=== PATIENT | female | born 1990 | race Hispanic/Latino ===

== ENCOUNTER 2017-10-31 21:25 | Inpatient (IN) | payer OTHER ==
[2017-10-31 23:01] VITALS: BMI 21.2
[2017-10-31] MEDS ORDERED: Lactated Ringer's 1,000 ML IV SCH (23:15)
[2017-10-31] MEDS ORDERED: Oxytocin 30 units/LR 500ML 30 U/500 ML BAG IV SCH (23:15)
--- NOTE | 2017-10-31 23:23 | OBADHP ---
Datetime: 10/31/2017 23:05 Admit Comment, IP Provider: This is 27 y/o F, , IUP at 39+ comes to the [facility] for r/o Labor and p ain. Pain stareted in morning and 4/10 severity, comes and goes every 5 to 10 mins. Denies LOF/BV, Good FM ROS unremarkbale PNC: Dr. Quintero PNI: Denies any complications with preg PMH: Denies PSH: Denies Allg: Ibuprofen Meds: PNV SH: Denies FH: Denies VS: Reviewed PE: As above A/P: 27 y/o F, , IUP at 39+ comes to the [facility] for r/o Labor and pain. Latent phase - Admit to L_D - Labs - Monitor NST/FHT - Rubella/Hep B - Reevaluation Case discussed with Dr. Quintero --- Janae Byrnes, PGY-[address] Quintero: Patient evaluated and I agree with the above Pelvic Type - PN: Adequate Extremities - PN: Normal Abdomen - PN: Normal Lungs - PN: Normal Heart - PN: Normal Thyroid - PN: Normal Neurologic - PN: Normal HEENT - PN: Normal General - PN: Normal FHR - Baseline A Provider: 130 Comments, ACOG Physical Exam: U/S: Vertex Order Rubella and Hep B Vital Signs Provider: Reviewed; Within Normal Limits IP Chief Complaint: Uterine contractions; Maternal discomfort NICHD Variability Prov Fetus A: Moderate 6-25bpm NICHD Accel Fetus A IP Provider: [id number] FHR Category Provider Fetus A: Category I NICHD Decel Fetus A IP Provider: None Dilatation, Provider: 4-5 Effacement, Provider: 80 Station, Provider: -2 Genitourinary Exam: Normal IP Adm Impression: Term, intrauterine IP Admit Plan: Admit to unit; Initiate labor protocol; Observation/Evaluation
[2017-11-01 00:08] LABS: BASO % 0.2 % (0.0-2.0); EOS # 0.1 K/uL (0.0-0.7); EOS % 0.7 % (0.0-4.0); HEMOGLOBIN 14.9 g/dL (12.0-16.0); LYMPH # 2.1 K/uL (1.0-4.3); LYMPH % 14.4 % (20.0-40.0); MEAN CELL VOLUME 96.2 fl (81.0-99.0); MEAN CORPUSCULAR HEMOGLOBIN 33.9 pg (27.0-31.0); MEAN CORPUSCULAR HGB CONC 35.2 g/dL (33.0-37.0); NEUT # 11.5 K/uL (1.8-7.0); NEUT % 77.7 % (50.0-75.0); RBC 4.41 Mil/uL (3.80-5.20); RED CELL DISTRIBUTION WIDTH 12.8 % (11.5-14.5); WHITE BLOOD COUNT 14.8 K/uL (4.8-10.8)
[2017-11-01] MEDS: Lactated Ringer's 1,000 ML IV SCH ×2 (07:55→09:10)
[2017-11-01] MEDS ORDERED: Fentanyl/Bupivacaine HCl 250 ML EPI ONE (09:18)
--- NOTE | 2017-11-01 10:38 | OBPN ---
Datetime: 11/01/2017 10:25 IP Progress Impression: Normal progression of labor; Reassuring heart rate IP Informed Consent Obtain: Vaginal Delivery; Risks, Benefits and Alternatives Discussed IP Procedures: Artificial ROM IP Progress Plan: Augmentation; Anticipate Vaginal Delivery Membranes, Provider: Bulging Amniotic Fluid Color, Provider: Meconium, Light FHR - Baseline A Provider: 130 Presentation-Admit: Vertex IP Progress Note Comment: She had episode of decel after epidural; placed in left lateral position, O2...FHR reactive A: Active phase of labor slow progress dues to irrgeular CTX PLAN: Discussion with pt...AROM augmentatoin - thin mec/Pitocin augmentation...observe progress NICHD Accel Fetus A IP Provider: 15X15 FHR Category Provider Fetus A: Category I NICHD Variability Prov Fetus A: Moderate 6-25bpm Dilatation, Provider: 7 Effacement, Provider: 90 Station, Provider: 0 Datetime: 10/31/2017 23:05 Vital Signs Provider: Reviewed; Within Normal Limits NICHD Decel Fetus A IP Provider: None
[2017-11-01] MEDS ORDERED: Lidocaine 2% Inj (20ml) ONE (11:19)
[2017-11-01] MEDS ORDERED: Benzocaine/Menthol SPRAY TOP PRN ×2 (12:34→17:37)
[2017-11-01] MEDS ORDERED: Oxycodone/Acetaminophen 5/325 mg Tab PO PRN ×2 (12:34→17:37)
--- NOTE | 2017-11-01 14:47 | OBDS ---
DELIVERY PERSONNEL Delivery Doctor: Sarah Thompson DO [employer] Service Supervisor: Reid Mckeon RN/ Reid Cazares RN Anesthesiologist: Urbano Jules MD Resident: none MATERNAL INFORMATION Delivery Anesthesia: Epidural Medications in Delivery: Pitocin Estimated Blood Loss (ml): 200 Placenta Cultured: No Maternal Complications: None Provider Comments: Over intact perineum, of live female . She was crying spontaneously, b ulb suctoined and placed on mother for skin to skin. Cord was clamped and cut by father. Placenta w as delivered intact spontansously. EBL 200cc. AGPAR 9,9 LABOR SUMMARY EDC: 11/07/2017 00:00 No. Babies in Womb: 1 Attempted: No Labor Anesthesia: Epidural LABOR INFORMATION Onset of Labor: 11/01/2017 08:30 Complete Dilatation: 11/01/2017 11:25 Oxytocin: N/A Group B Beta Strep: Negative Antibiotics # of Doses: N/A Antibiotics Time of Last Dose: N/A Steroids Given: None Reason Steroids Not Administered: Not Applicable MEMBRANES Membranes Rupture Method: Artificial Rupture of Membranes: 11/01/2017 10:25 Length of Rupture (hrs): 1.72 Amniotic Fluid Color: Light Meconium Amniotic Fluid Amount: Moderate Amniotic Fluid Odor: Normal STAGES OF LABOR Stage 1 hrs: 2 Stage 1 min: 55 Stage 2 hrs: 0 Stage 2 min: 43 Stage 3 hrs: 0 Stage 3 min: 7 Total Time in Labor hrs: 3 Total Time in Labor min: 45 VAGINAL DELIVERY Episiotomy: None Laceration Extension: First Degree Laceration Type: Perineal Other Laceration: Bilateral inner labial laceration Laceration Repair: Yes Laceration Repair Note: 2% Lidocaine infiltrated (3cc) to both inner labia. 2.0 Vicryl sutures used to repair inner labial lacerations and perineal laceration Initial Vag Sponge Count: 5 laps Final Vag Sponge Count: 5 laps Initial Vag Sharps Count: 3 needles/1 syringe Final Vag Sharps Count: 3 needles, 1 syringe Sponge Count Correct: Yes Sharps Count Correct: Yes Count Comment: one syringe, 3 needles, 5 laps BABY A INFORMATION Delivery Date/Time: 11/01/2017 12:08 Method of Delivery: Vaginal Born in Route : No : N/A Forceps: N/A Vacuum Extraction: N/A Shoulder Dystocia : No SHOULDER DYSTOCIA BABY A Delivery Date/Time: 11/01/2017 12:08 PRESENTATION/POSITION BABY A Presentation: Cephalic Cephalic Presentation: Vertex Breech Presentation: N/A PLACENTA INFORMATION BABY A Placenta Delivery Time : 11/01/2017 12:15 Placenta Method of Delivery: Spontaneous Placenta Status: Delivered SCORES BABY A Heart Rate 1 min: >100 bpm Resp Effort 1 min: Good Cry Reflex Irritability 1 min: Cough or Sneeze or Pulls Away Muscle Tone 1 min: Active Motion Color 1 min: Body [place], Extremities Blue Resuscitation Effort 1 min: Tactile Stimulation SCORE 1 MIN: 9 Heart Rate 5 min: >100 bpm Resp Effort 5 min: Good Cry Reflex Irritability 5 min: Cough or Sneeze or Pulls Away Muscle Tone 5 min: Active Motion Color 5 min: Body [place], Extremities Blue Resuscitation Effort 5 min: N/A SCORE 5 MIN: 9 INFORMATION BABY A Gestational Age at Delivery: 39.1 Gestational Status: Term Infant Outcome : Liveborn Condition : Stable Infant Sex: Female IDENTIFICATION/MEDS BABY A ID Band Number: [id number] ID Band Location: Left Leg; Left Arm Vitamin K Given : Not Given Erythromycin Given: Not Given WEIGHT/LENGTH BABY A Infant Birthweight (gms): 3260 Infant Weight (lb): 7 Infant Weight (oz): 3 CORD INFORMATION BABY A No. Cord Vessels: 3 Nuchal Cord : N/A Nuchal Cord Other: N/A True Knot: N/A Infant Cord pH Baby Arterial: N/A Cord pH Baby Venous: N/A Cord Blood Taken: Yes Banking/Donate Info: N/A Suction: Mouth; Nose ASSESSMENT BABY A Complications: None Physical Findings at Delivery: Within Normal Limits Respirations: Appears Normal Watch Crystal Grinder/ALS Called : No Infant Care By: Dr. Jain/Reid Mckeon RN/Reid Cazares RN Transferred To: Remains with Mother
[2017-11-02 06:35] LABS: HEMOGLOBIN 13.9 g/dL (12.0-16.0); MEAN CORPUSCULAR HEMOGLOBIN 33.2 pg (27.0-31.0); MEAN CORPUSCULAR HGB CONC 34.2 g/dL (33.0-37.0); RBC 4.18 Mil/uL (3.80-5.20); RED CELL DISTRIBUTION WIDTH 12.6 % (11.5-14.5)
[2017-11-02] MEDS ORDERED: Multivitamin With Minerals Tab PO SCH (09:00)
[2017-11-02] MEDS: Multivitamin With Minerals Tab PO SCH (09:10)
[2017-11-03] MEDS: Multivitamin With Minerals Tab PO SCH (08:21)
[2017-11-03 18:33] VITALS: BP 117/69; PULSE 67; RESP 20; TEMP 98.4; O2SAT 99
== END 2017-11-03 14:10 | disposition home or self-care (01) | DRG 775 ==
LOC: H.EROB2 21:25 → H.L&D 23:01 → H.OB/GYN 11-01 15:54
PROVIDERS: ADMIT Obstetrics & Gynecology; ATTEND Obstetrics & Gynecology
PROC: 4A1HXCZ Monitoring of Products of Conception, Cardiac Rate, External Approach (ICD-10-PCS; 2017-10-31)
PROC: 10E0XZZ Delivery of Products of Conception, External Approach (ICD-10-PCS; principal; 2017-11-01)
PROC: 0HQ9XZZ Repair Perineum Skin, External Approach (ICD-10-PCS; 2017-11-01)
PROC: 10907ZC Drainage of Amniotic Fluid, Therapeutic from Products of Conception, Via Natural or Artificial Opening (ICD-10-PCS; 2017-11-01)
DX: O77.0 Labor and delivery complicated by meconium in amniotic fluid (principal); O70.0 First degree perineal laceration during delivery; Z37.0 Single live birth; Z3A.39 39 weeks gestation of pregnancy